=== PATIENT | female | born 1955 | race Two or more races ===

== ENCOUNTER 2021-06-18 05:50 | Day surgery (SDC) | payer OTHER ==
[~2021-06-18 05:50] MED LIST: EVISTA60 MG PO; NEXIUM 24HR20 M1 PO
== END 2021-06-18 10:15 | disposition home or self-care (01) ==
LOC: CIR.AMB 05:50
PROVIDERS: ATTEND Orthopaedic Surgery Hand Surgery
DX: M67.432 Ganglion, left wrist (principal); Z20.822 Contact with and (suspected) exposure to COVID-19